=== PATIENT | female | born 1930 | race Hispanic/Latino ===

== ENCOUNTER 2016-08-22 09:58 | Emergency (ER) | payer MEDICARE ==
[2016-08-22 10:06] VITALS: BMI 20.3
[2016-08-22 10:41] LABS: ADD MANUAL DIFF? NO
[2016-08-22 10:47] LABS: BASO # 0.05 K/mm3 (0.0-2.0); BASO % 0.6 % (0.0-3.0); EOS # 0.5 (0.0-0.7); EOS % 6.4 % (1.5-5.0); GRAN # 3.88 (1.4-6.5); GRAN % 46.7 % (50.0-68.0); HEMATOCRIT 34.8 % (36.0-48.0); LYMPH # 3.2 (1.2-3.4); LYMPH % 38.5 % (22.0-35.0); MEAN CELL VOLUME 97.5 fL (80.0-105.0); MEAN CORPUSCULAR HEMOGLOBIN 32.2 pg (25.0-35.0); MONO # 0.7 (0.1-0.6); MONO % 7.8 % (1.0-6.0); PLATELET COUNT 276 10^3/uL (120.0-450.0); RED CELL DISTRIBUTION WIDTH 13.9 % (11.5-14.5); WHITE BLOOD COUNT 8.3 10^3/ul (4.5-11.0)
[2016-08-22 10:55] LABS: ALB/GLOB RATIO 0.9 (1.1-1.8); ALKALINE PHOSPHATASE 87 U/L (38-133); ALT/SGPT 8 U/L (7-56); AST/SGOT 19 U/L (15-39); BLOOD UREA NITROGEN 15 mg/dL (7-21); CALCIUM 8.8 mg/dL (8.4-10.5); CARBON DIOXIDE 28 mmol/L (21-33); CHLORIDE 104 mmol/L (98-107); GFR AFRICAN-AMERICAN 47; GLUCOSE,RANDOM 108 mg/dL (70-110); POTASSIUM 3.9 mmol/L (3.6-5.0); SODIUM 142 mmol/L (132-148); TOTAL PROTEIN 7.3 g/dL (5.8-8.3)
--- NOTE | 2016-08-22 10:57 | ED PDOC ---
Arrival/HPI - General Chief Complaint: Altered Mental Status Time Seen by Provider: 08/22/16 10:26 Historian: Patient - History of Present Illness Narrative History of Present Illness (Text): 08/22/16 10:27 A 86 year old female was brought into the emergency department by EMS for a syncopal episode prior to arrival. Patient reports she remembers feeling lightheaded and sitting down on a chair. Son states he found the patient unresponsive and called EMS. Patients last syncopal episode was 3 weeks ago. 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 Patient denies any headache, dizziness, fever, nausea, vomiting, diarrhea, abdominal pain, chest pain, shortness of breath or any other complaints. PMD: Dr. Koo Time/Duration: Prior to Arrival Symptom Course: Resolved Quality: Other Context: Home Past Medical History - Provider Review Nursing Documentation Reviewed: Yes - Cardiac Hx Cardiac Disorders: No - Pulmonary Hx Respiratory Disorders: No - Neurological Hx Neurological Disorder: No - HEENT Hx HEENT Disorder: No - Renal Other/Comment: reports bladder surgery in the 70s - Endocrine/Metabolic Hx Endocrine Disorders: No - Hematological/Oncological Hx Blood Disorders: No - Integumentary Hx Dermatological Disorder: No - Musculoskeletal/Rheumatological Hx Musculoskeletal Disorders: Yes Hx Falls: Yes - Gastrointestinal Hx Gastrointestinal Disorders: No - Genitourinary/Gynecological Other/Comment: reports bladder surgery in the s - Psychiatric Hx Depression: No Hx Emotional Abuse: No Hx Physical Abuse: No Hx Substance Use: No - Surgical History Hx Cholecystectomy: Yes - Suicidal Assessment Feels Threatened In Home Enviroment: No Family/Social History - Physician Review Nursing Documentation Reviewed: Yes Family/Social History: No Known Family HX Smoking Status: Never Smoked Hx Alcohol Use: No Hx Substance Use: No Hx Substance Use Treatment: No Allergies/Home Meds Allergies/Adverse Reactions: Allergies Penicillins Allergy (Verified 08/22/16 10:06) SWELLING Home Medications: Home Meds Medication Instructions Recorded Confirmed Omeprazole 0 mg PO DAILY 08/22/16 08/22/16 Physical Exam - Physical Exam Narrative Physical Exam (Text): - Review of Systems Constitutional: Normal. absent: Fatigue, Weight Change, Fevers Eyes: Normal ENT: Normal Respiratory: Normal absent: SOB, Cough, Sputum Cardiovascular: (+) Syncope absent: Chest pain, Palpitations Gastrointestinal: Normal absent: Abdominal pain, Diarrhea, Nausea, Vomiting Genitourinary: Normal. absent: Dysuria, Frequency, Hematuria Musculoskeletal: Normal. absent: Arthralgias, Back Pain, Neck Pain Skin: Normal Neurological: Normal absent: Focal Weakness Endocrine: Normal Hemo/Lymphatic: Normal Psychiatric: Normal - Physical exam Patient appears age appropriate, speaking full sentences without difficulty Head atraumatic. No nasal bone deformity or tenderness, no facial or jaw pain/ swelling. No neck midline tenderness, thoracic and lumbar spine with no midline tenderness. Pt moving b/l upper and lower extremities without difficulty, 5/5 strength, with full active and passive ROM. Distal neurovasc fully intact. Abd soft/nt/ng, no hematomas, no peritoneal signs. Neg. pelvic rock. - Systems Exam Head: Present: Atraumatic, Normocephalic Pupils: Present: PERRL Extraocular Muscles: Present: EOMI Conjunctiva: Present: Normal Mouth: Present: Moist Mucous Membranes Neck: Present: Normal Range of Motion. No: MIDLINE TENDERNESS, Paraspinal Tenderness Respiratory/Chest: Present: Clear to Auscultation, Good Air Exchange. No: Respiratory Distress, Accessory Muscle Use, Tachypneic Cardiovascular: Present: Regular Rate and Rhythm, Normal S1, S2, Peripheral Pulses Present. No: Murmurs Abdomen: Present: Normal Bowel Sounds, No: Tenderness, Peritoneal Signs, Rebound, Guarding, Distention Back: Present: Normal Inspection. No: Midline Tenderness, Paraspinal Tenderness Upper Extremity: Present: Normal Inspection. No: Cyanosis, Edema Lower Extremity: Present: Normal Inspection. No: Edema Neurological: Present: GCS=15, Speech Normal, cranial nerves II through XII fully intact with no cerebellar abnormality, neuro-sensory fully intact. No focal neurological deficits. Skin: Present: Warm, Dry, Normal Color. No: Rashes Lymphatic: Present: OX3, NI, NC Psychiatric: Present: Alert, Oriented x 3, Normal Insight, Normal Concentration Vital Signs Temp Pulse Resp BP Pulse Ox 08/22/16 10:00 98.8 F 76 16 174/108 H 96 Appearance: Positive for: Well-Appearing, Non-Toxic, Comfortable Pain Distress: None Mental Status: Positive for: Alert and Oriented X 3 Medical Decision Making ED Course and Treatment: 08/22/16 10:27 Impression: A 86 year old female with a syncopal episode. Patient denies any complaints. Physical exam unremarkable. Patient states that she has a history of orthostatic hypotension, states that this syncopal episode feels identical to her previous episodes which she has had in the past. No focal neurological deficits on examination, no signs of trauma. Patient ambulates in the emergency department with assistance. Patient states that she ambulates with a walker at home. Plan: -- Head CT -- Chest xray -- EKG -- Labs -- Urinalysis -- Reassess and disposition Progress Notes: EKG shows NSR at [address]-segment elevations, normal intervals. Interpreted by me. Report Date : 08/22/2016 11:58:02 PROCEDURE: CT HEAD WITHOUT CONTRAST. Dictator : Tian Jennings IMPRESSION: No evidence of acute intracranial hemorrhage intracranial collection mass effect or midline shift. Report Date : 08/22/2016 12:04:59 Procedure: Chest xray Dictator : Louis Knight MD IMPRESSION: No active disease. EKG interpreted by ER physician. Normal sinus. No ST-segment elevations. Normal intervals. 08/22/16 13:13 The patient refuses admission and wishes to leave the Emergency Department against my medical advice. Patient was told that admission to the hospital is necessary and a full explanation of the reasons why was given, and understood by patient. The risks of leaving were explained and include worsening of condition, and permanent disability and from an undiagnosed or untreated condition. The patient accepts these risks, and is in my judgment is competent and capable of understanding the clinical situation and my explanation of the risks of leaving. Patient was given the opportunity to ask questions and change mind. The patient was instructed regarding the best care for the present symptoms, and to follow up with Dr. Koo as soon as possible, or return to the Emergency Department at any time for continuing care. Pt states she understands to return to the ER right away for new or worsening symptoms or for inability to f/u with PMD or specialist as instructed. Patient states that she fully agrees with and understands discharge instructions. States that she agrees with the plan and disposition. Verbalized and repeated discharge instructions and plan. I have given the patient opportunity to ask any additional questions. - Lab Interpretations Lab Results: 08/22/16 10:30 08/22/16 10:30 Lab Results 08/22/16 10:30: WBC 8.3 D, RBC 3.57, Hgb 11.5 L, Hct 34.8 L, MCV 97.5, MCH 32.2 , MCHC 33.0, RDW 13.9, Plt Count 276, MPV 9.0, Gran % 46.7 L, Lymph % (Auto) 38.5 H, [place] % (Auto) 7.8 H, Eos % (Auto) 6.4 H, Baso % (Auto) 0.6, Gran # 3.88 , Lymph # 3.2, [place] # 0.7 H, Eos # 0.5, Baso # 0.05, PT 10.9, INR 1.01, APTT 24.6, Sodium 142, Potassium 3.9, Chloride 104, Carbon Dioxide 28, Anion Gap 14, BUN 15, Creatinine 1.3, Est GFR ( Amer) 47, Est GFR (Non-Af Amer) 39, Random Glucose 108, Calcium 8.8, Total Bilirubin 1.0, AST 19, ALT 8, Alkaline Phosphatase 87, Lactate Dehydrogenase 344, Total Creatine Kinase < 20 L, Troponin I < 0.01 D, Total Protein 7.3, Albumin 3.4, Globulin 3.9, Albumin/ Globulin Ratio 0.9 L I have reviewed the lab results: Yes - RAD Interpretation Radiology Orders: 08/22/16 10:26 HEAD W/O CONTRAST [CT] Stat CHEST PORTABLE [RAD] Stat - Scribe Statement The provider has reviewed the documentation as recorded by the Scribe Vicky Sheldon Provider Scribe Attestation: All medical record entries made by the Scribe were at my direction and personally dictated by me. I have reviewed the chart and agree that the record accurately reflects my personal performance of the history, physical exam, medical decision making, and the department course for this patient. I have also personally directed, reviewed, and agree with the discharge instructions and disposition. Disposition/Present on Arrival - Present on Arrival Any Indicators Present on Arrival: No History of DVT/PE: No History of Uncontrolled Diabetes: No Urinary Catheter: No History of Decub. Ulcer: No History Surgical Site Infection Following: None - Disposition Have Diagnosis and Disposition been Completed?: Yes Diagnosis: Syncope Disposition: AGAINST MEDICAL ADVICE Disposition Time: 13:15 Patient Plan: Discharge Patient Problems: Current Active Problems Problem Status Diagnosed Post concussion syndrome Acute Syncope Acute Condition: GUARDED Discharge Instructions (ExitCare): Syncope (ED), Against Medical Advice (ED) Additional Instructions: PLEASE RETURN TO THE EMERGENCY DEPARTMENT FOR NEW OR WORSENING SYMPTOMS. RETURN RIGHT AWAY IF YOU CANNOT FOLLOW UP WITH YOUR PRIMARY CARE DOCTOR, CLINIC, OR SPECIALIST IN 1-2 DAYS. Referrals: Mynor Koo MD [Primary Care Provider] - Follow up with primary
[2016-08-22 10:59] LABS: INR 1.01 (0.93-1.08); PARTIAL THROMBOPLASTIN TIME 24.6 Seconds (23.7-30.8)
[2016-08-22 11:02] VITALS: TEMP 98.8
[2016-08-22 11:07] LABS: TROPONIN I < 0.01 ng/mL
--- NOTE | 2016-08-22 11:59 | CT ---
PROCEDURE: CT HEAD WITHOUT CONTRAST. HISTORY: SHORT x2 weeks COMPARISON: Comparison is made to the previous study dated 07/23/2016 TECHNIQUE: Axial computed tomography images were obtained through the head/brain without intravenous contrast. Radiation dose: Total exam DLP = 688.12 mGy-cm. FINDINGS: HEMORRHAGE: No intracranial hemorrhage. BRAIN: No mass effect or edema. Re- demonstration of mild atrophy and moderate chronic microvascular white matter ischemic disease. VENTRICLES: Unremarkable. No hydrocephalus. CALVARIUM: Unremarkable. PARANASAL SINUSES: Unremarkable as visualized. No significant inflammatory changes. MASTOID AIR CELLS: Unremarkable as visualized. No inflammatory changes. OTHER FINDINGS: None. IMPRESSION: No evidence of acute intracranial hemorrhage intracranial collection mass effect or midline shift.
--- NOTE | 2016-08-22 12:06 | RAD ---
HISTORY: cough COMPARISON: 07/24/2016 FINDINGS: LUNGS: No active pulmonary disease. PLEURA: No significant pleural effusion identified, no pneumothorax apparent. CARDIOVASCULAR: Normal. OSSEOUS STRUCTURES: Several bilateral old rib fractures. No evidence of acute fracture. VISUALIZED UPPER ABDOMEN: Normal. OTHER FINDINGS: None. IMPRESSION: No active disease.
--- NOTE | 2016-08-22 12:51 | CARD ---
APPROVED REPORT EKG Measurement Heart [id number] <Conclusion> Normal sinus rhythm Left axis deviation Possible Anterior infarct, age undetermined T wave abnormality, consider lateral ischemia Prolonged QT Abnormal ECG
[2016-08-22 15:21] VITALS: BP 162/92; PULSE 75; RESP 17; O2SAT 97
== END 2016-08-22 15:00 | disposition left against medical advice (07) ==
LOC: ED 09:58
DX: R55 Syncope and collapse (principal)

== ENCOUNTER 2016-12-23 10:08 | Emergency (ER) | payer MEDICARE, OTHER ==
[2016-12-23 10:08] VITALS: BMI 20.3
[2016-12-23 10:31] VITALS: TEMP 97.4; O2SAT 98
[2016-12-23 10:38] LABS: BASO # 0.07 K/mm3 (0.0-2.0); BASO % 0.9 % (0.0-3.0); EOS # 0.3 (0.0-0.7); GRAN # 4.23 (1.4-6.5); GRAN % 54.2 % (50.0-68.0); HEMOGLOBIN 12.3 gm/dL (12.0-16.0); LYMPH # 2.6 (1.2-3.4); MEAN CELL VOLUME 95.9 fL (80.0-105.0); MEAN CORPUSCULAR HEMOGLOBIN 31.7 pg (25.0-35.0); MEAN CORPUSCULAR HGB CONC 33.1 g/dl (31.0-37.0); MEAN PLATELET VOLUME 8.6 fl (7.0-11.0); MONO # 0.6 (0.1-0.6); MONO % 7.9 % (1.0-6.0); PLATELET COUNT 342 10^3/uL (120.0-450.0); RBC 3.88 10^6/uL (3.5-6.1); RED CELL DISTRIBUTION WIDTH 14.2 % (11.5-14.5); WHITE BLOOD COUNT 7.8 10^3/ul (4.5-11.0)
[2016-12-23 10:50] LABS: ALBUMIN 3.8 g/dL (3.0-4.8); ALT/SGPT 14 U/L (7-56); AST/SGOT 20 U/L (15-39); BLOOD UREA NITROGEN 15 mg/dL (7-21); CALCIUM 9.2 mg/dL (8.4-10.5); GFR AFRICAN-AMERICAN 40; GFR NON-AFRICAN AMERICAN 33; MAGNESIUM 2.2 mg/dL (1.7-2.2)
--- NOTE | 2016-12-23 10:59 | ED PDOC ---
Arrival/HPI - General Chief Complaint: Syncope Time Seen by Provider: 12/23/16 10:23 Historian: Patient - History of Present Illness Narrative History of Present Illness (Text): 12/23/16 10:51 Simran Sepulveda is a 86 year old female who presents to the emergency department via EMS for evaluation following a syncopal episode prior to arrival. According to patient, she was making coffee when she passed out. Patient was found by son unresponsive, and leaning back on her walking chair which she uses to ambulate. Denies any fall/trauma. Patient states that she felt lightheaded earlier today morning, and notes that it was similar to her pervious syncopal episodes in the past. Currently patient is awake, alert and oriented X3 and does not endorse any complaints. Denies any fever, chills, headache, dizziness, chest pain, shortness of breath, nausea, vomiting, back pain, neck pain, or any other complaints at this time. Time/Duration: Prior to Arrival Symptom Onset: Sudden Symptom Course: Improving Activities at Onset: Light Context: Home Past Medical History - Provider Review Nursing Documentation Reviewed: Yes - Cardiac Hx Cardiac Disorders: Yes Hx Hypertension: Yes - Pulmonary Hx Respiratory Disorders: No - Neurological Hx Neurological Disorder: No - HEENT Hx HEENT Disorder: No - Renal Hx Renal Disorder: Yes Other/Comment: reports bladder surgery in the 70's - Endocrine/Metabolic Hx Endocrine Disorders: No - Hematological/Oncological Hx Blood Disorders: No - Integumentary Hx Dermatological Disorder: No - Musculoskeletal/Rheumatological Hx Musculoskeletal Disorders: Yes Hx Falls: Yes - Gastrointestinal Hx Gastrointestinal Disorders: No - Genitourinary/Gynecological Hx Genitourinary Disorders: Yes Other/Comment: reports bladder surgery in the 70s - Psychiatric Hx Psychophysiologic Disorder: No Hx Depression: No Hx Emotional Abuse: No Hx Physical Abuse: No Hx Substance Use: No - Surgical History Hx Cholecystectomy: Yes Other/Comment: "bladder surgery" - Suicidal Assessment Feels Threatened In Home Enviroment: No Family/Social History - Physician Review Nursing Documentation Reviewed: Yes Family/Social History: No Known Family HX Smoking Status: Never Smoked Hx Alcohol Use: No Hx Substance Use: No Hx Substance Use Treatment: No Allergies/Home Meds Allergies/Adverse Reactions: Allergies Penicillins Allergy (Verified 12/23/16 13:14) SWELLING Review of Systems - Physician Review All systems were reviewed & negative as marked: Yes - Review of Systems Constitutional: Normal. absent: Fatigue, Fevers Respiratory: Normal. absent: SOB, Cough, Sputum Cardiovascular: Syncope. absent: Chest Pain, Palpitations Neurological: Dizziness. absent: Headache Psychiatric: Normal Physical Exam Vital Signs Reviewed: Yes Vital Signs Temp Pulse Resp BP Pulse Ox 12/23/16 12:58 68 16 159/78 H 98 12/23/16 11:55 70 16 190/82 H 98 12/23/16 10:24 97.4 F L 65 18 156/78 H 98 Temperature: Afebrile Blood Pressure: Hypertensive Pulse: Regular Respiratory Rate: Normal Appearance: Positive for: Non-Toxic, Other (emaciated ) Pain Distress: None Mental Status: Positive for: Alert and Oriented X 3 Finger Stick Blood Glucose: 133 - Systems Exam Head: Present: Atraumatic, Normocephalic Pupils: Present: PERRL Extroacular Muscles: Present: EOMI Conjunctiva: Present: Normal Mouth: Present: Moist Mucous Membranes Neck: Present: Normal Range of Motion Respiratory/Chest: Present: Clear to Auscultation, Good Air Exchange. No: Respiratory Distress, Accessory Muscle Use Cardiovascular: Present: Regular Rate and Rhythm, Murmurs (systolic murmor ), Normal S1, S2 Abdomen: Present: Normal Bowel Sounds. No: Tenderness, Distention, Peritoneal Signs, Rebound, Guarding Upper Extremity: Present: Normal Inspection. No: Cyanosis, Edema Lower Extremity: Present: Normal Inspection. No: Edema Neurological: Present: GCS=15, CN II-XII Intact, Speech Normal, Motor Func Grossly Intact, Normal Sensory Function Skin: Present: Warm, Dry, Normal Color. No: Rashes Psychiatric: Present: Alert, Oriented x 3, Normal Insight, Normal Concentration Medical Decision Making ED Course and Treatment: Impression:A 86 year old female who presents to the emergency department for evaluation following a syncopal episode. Plan -- CT Head -- EKG -- Labs, cardiac enzymes -- Chest X-ray -- Urine Culture -- Urinalysis -- Reassess and disposition Progress Notes: 12/23/16 11:02 EKG interpreted by me: NSR @ 62 bpm with LAD 12/23/16 11:59 CT HEAD results reviewed: FINDINGS: HEMORRHAGE: No intracranial hemorrhage. BRAIN: No mass effect or edema. Chronic microvascular changes are seen in the periventricular white matter. VENTRICLES: Unremarkable. No hydrocephalus. CALVARIUM: Unremarkable. PARANASAL SINUSES: Unremarkable as visualized. No significant inflammatory changes. MASTOID AIR CELLS: Unremarkable as visualized. No inflammatory changes. OTHER FINDINGS: None. IMPRESSION: No acute findings 12/23/16 13:01 Patient was offered admission to the hospital for further evaluation, but patient wants to sign out against medical advice. I strong advised the patient of the risks including deterioration of condition, more episodes of syncope, and . Patient states she understand the risks of leaving the hospital. Leaving Against Medical Advice (AMA): The patient is choosing to leave against medical advice. I have personally explained to the patient that choosing to do so may result in permanent bodily harm or . I have discussed at great length that without further evaluation and monitoring there may be unforeseen circumstances and/or deterioration causing permanent bodily harm or as a result of their choice. The patient is alert, oriented, and shows the mental capacity to make clear decisions regarding the patients health care at this time. The patient continues to wish to leave against medical advice. The patient has been advised that they should return to the emergency room immediately if they change their mind at any time, or if their condition begins to change or worsen in any way.. - Lab Interpretations Lab Results: 12/23/16 10:20 12/23/16 10:20 Lab Results 12/23/16 12:15: Urine Color Dark yellow, Urine Appearance Turbid, Urine pH 7.0, Ur Specific [place] 1.010, Urine Protein Trace H, Urine Glucose (UA) Negative, Urine Ketones Negative, Urine Blood Moderate H, Urine Nitrate Negative, Urine Bilirubin Negative, Urine Urobilinogen 0.2, Ur Leukocyte Esterase Large H, Urine RBC 1 - 3, Urine WBC 10 - 15, Urine Bacteria Many 12/23/16 10:30: TSH 3rd Generation 6.63 H 12/23/16 10:20: Sodium 142, Potassium 4.1, Chloride 104, Carbon Dioxide 26, Anion Gap 16, BUN 15, Creatinine 1.5 H, Est GFR ( Amer) 40, Est GFR (Non- Af Amer) 33, Random Glucose 120 H, Calcium 9.2, Magnesium 2.2, Total Bilirubin 0.8, AST 20, ALT 14, Alkaline Phosphatase 88, Lactate Dehydrogenase 377, Total Creatine Kinase 30 L, Troponin I < 0.01, Total Protein 7.7, Albumin 3.8, Globulin 3.9, Albumin/Globulin Ratio 1.0 L 12/23/16 10:20: WBC 7.8, RBC 3.88, Hgb 12.3, Hct 37.2, MCV 95.9, MCH 31.7, MCHC 33.1, RDW 14.2, Plt Count 342, MPV 8.6, Gran % 54.2, Lymph % (Auto) 33.0, [place] % (Auto) 7.9 H, Eos % (Auto) 4.0, Baso % (Auto) 0.9, Gran # 4.23, Lymph # 2.6, [place] # 0.6, Eos # 0.3, Baso # 0.07 I have reviewed the lab results: Yes - RAD Interpretation Radiology Orders: 12/23/16 10:26 CHEST PORTABLE [RAD] Stat 12/23/16 10:27 HEAD W/O CONTRAST [CT] Stat Assistant Director Of [employer]: Radiologist - EKG Interpretation Interpreted by ED Physician: Yes Type: 12 lead EKG - Medication Orders Current Medication Orders: Discontinued Medications Amlodipine Besylate (Norvasc) 10 mg PO DAILY LIEN Atorvastatin Calcium (Lipitor) 20 mg PO DIN LIEN Clonidine HCl (Catapres) 0.1 mg PO TID PRN PRN Reason: Systolic Blood Pressure - Scribe Statement The provider has reviewed the documentation as recorded by the Lyibe Sandra Andujar Provider Attestation: Provider Scribe Attestation: All medical record entries made by the Scribe were at my direction and personally dictated by me. I have reviewed the chart and agree that the record accurately reflects my personal performance of the history, physical exam, medical decision making, and the department course for this patient. I have also personally directed, reviewed, and agree with the discharge instructions and disposition. Disposition/Present on Arrival - Present on Arrival Any Indicators Present on Arrival: No History of DVT/PE: No History of Uncontrolled Diabetes: No Urinary Catheter: No History of Decub. Ulcer: No History Surgical Site Infection Following: None - Disposition Have Diagnosis and Disposition been Completed?: Yes Diagnosis: Syncope Disposition: AGAINST MEDICAL ADVICE Disposition Time: 11:35 Condition: GUARDED Discharge Instructions (ExitCare): Syncope (ED) Additional Instructions: Thank you for letting us take care of you today. Your provider was Dr. Puente. You were treated for syncope. The emergency medical care you received today was directed at your acute symptoms. If you were prescribed any medication, please fill it and take as directed. It may take several days for your symptoms to resolve. Return to the Emergency Department if your symptoms worsen, do not improve, or if you have any other problems. Please contact your doctor or call one of the physicians/clinics you have been referred to that are listed on the Patient Visit Information form that is included in your discharge packet. Bring any paperwork you were given at discharge with you along with any medications you are taking to your follow up visit. Our treatment cannot replace ongoing medical care by a primary care provider (PCP) outside of the emergency department. Thank you for allowing the [facility] team to be part of your care today. FOLLOW UP WITH YOUR PRIMARY DOCTOR TODAY OR TOMORROW. RETURN TO THE EMERGENCY ROOM IF YOU HAVE ANY CONCERNS. Referrals: Mynor Koo MD [Primary Care Provider] - Follow up with primary
[2016-12-23 11:02] LABS: TROPONIN I < 0.01 ng/mL
--- NOTE | 2016-12-23 11:16 | CT ---
PROCEDURE: CT HEAD WITHOUT CONTRAST. HISTORY: syncope COMPARISON: None available. TECHNIQUE: Axial computed tomography images were obtained through the head/brain without intravenous contrast. Radiation dose: Total exam DLP = 791 mGy-cm. This CT exam was performed using one or more of the following dose reduction techniques: Automated exposure control, adjustment of the mA and/or kV according to patient size, and/or use of iterative reconstruction technique. FINDINGS: HEMORRHAGE: No intracranial hemorrhage. BRAIN: No mass effect or edema. Chronic microvascular changes are seen in the periventricular white matter. VENTRICLES: Unremarkable. No hydrocephalus. CALVARIUM: Unremarkable. PARANASAL SINUSES: Unremarkable as visualized. No significant inflammatory changes. MASTOID AIR CELLS: Unremarkable as visualized. No inflammatory changes. OTHER FINDINGS: None. IMPRESSION: No acute findings
--- NOTE | 2016-12-23 11:31 | RAD ---
HISTORY: syncope COMPARISON: 08/22/2016 FINDINGS: LUNGS: No acute findings PLEURA: No significant pleural effusion identified, no pneumothorax apparent. CARDIOVASCULAR: The heart is normal in size. There is moderate aortic tortuosity OSSEOUS STRUCTURES: No significant abnormalities. VISUALIZED UPPER ABDOMEN: Normal. OTHER FINDINGS: None. IMPRESSION: No acute findings
[2016-12-23 11:56] VITALS: RESP 16
[2016-12-23 12:37] LABS: URINE BILIRUBIN NEGATIVE (NEGATIVE); URINE BLOOD MODERATE (NEGATIVE); URINE GLUCOSE (UA) NEGATIVE (NEGATIVE); URINE LEUKOCYTE ESTERASE LARGE Leu/uL (NEGATIVE); URINE NITRATE NEGATIVE (NEGATIVE); URINE PROTEIN TRACE mg/dL (<30 mg/dL); URINE UROBILINOGEN 0.2 E.U./dL (<1 E.U./dL)
[2016-12-23 12:41] LABS: URINE APPEARANCE TURBID (CLEAR); URINE COLOR DARK YELLOW (YELLOW)
[2016-12-23 12:59] LABS: URINE BACTERIA MANY (NEG)
[2016-12-23 13:39] VITALS: BP 159/78; PULSE 68
--- NOTE | 2016-12-23 15:53 | CARD ---
APPROVED REPORT EKG Measurement Heart [id number] <Conclusion> Sinus rhythm with fusion complexes Left axis deviation Abnormal ECG
== END 2016-12-23 12:58 | disposition left against medical advice (07) ==
LOC: ED 10:08 → ERH 12:12 → UNDOADMIN 12:12
DX: R55 Syncope and collapse (principal); I10 Essential (primary) hypertension

== ENCOUNTER 2017-03-28 11:15 | Emergency (ER) | payer MEDICARE ==
[2017-03-28 11:24] VITALS: BMI 17.2
--- NOTE | 2017-03-28 12:00 | ED PDOC ---
Arrival/HPI - General Chief Complaint: Altered Mental Status Time Seen by Provider: 03/28/17 11:20 Historian: Patient - History of Present Illness Narrative History of Present Illness (Text): 03/28/17 11:52 A 86 year old female brought into the emergency department by EMS after syncopal episode this morning. Son reports he found patient passed out on her walker chair. He attempted to wake her up but patient would not respond. He says it took about 15-20 minutes to arouse, which occurred when police and ambulance arrived. Patient recalls standing up to get coffee but unable to provide any further details. Son reports patient has experienced similar episodes before. Patient denies any focal weakness, fever, chills, nausea, vomiting, abdominal pain, chest pain, shortness of breath, cough, headache, dizziness, weakness, vision changes or any other complaints. PMD: Dr. Koo Time/Duration: Prior to Arrival Symptom Course: Resolved Quality: Other Context: Home Past Medical History - Provider Review Nursing Documentation Reviewed: Yes - Infectious Disease Hx of Infectious Diseases: None - Cardiac Hx Cardiac Disorders: Yes Hx Hypertension: Yes - Pulmonary Hx Respiratory Disorders: No - Neurological Hx Neurological Disorder: No - HEENT Hx HEENT Disorder: No - Renal Hx Renal Disorder: Yes Other/Comment: reports bladder surgery in the 70's - Endocrine/Metabolic Hx Endocrine Disorders: No - Hematological/Oncological Hx Blood Disorders: No - Integumentary Hx Dermatological Disorder: No - Musculoskeletal/Rheumatological Hx Musculoskeletal Disorders: Yes Hx Falls: Yes - Gastrointestinal Hx Gastrointestinal Disorders: No - Genitourinary/Gynecological Hx Genitourinary Disorders: Yes Other/Comment: reports bladder surgery in the 70s - Psychiatric Hx Psychophysiologic Disorder: No Hx Depression: No Hx Emotional Abuse: No Hx Physical Abuse: No Hx Substance Use: No - Surgical History Hx Cholecystectomy: Yes Other/Comment: "bladder surgery" - Anesthesia Hx Anesthesia: Yes Hx Anesthesia Reactions: No - Suicidal Assessment Feels Threatened In Home Enviroment: No Family/Social History - Physician Review Nursing Documentation Reviewed: Yes Family/Social History: No Known Family HX Smoking Status: Never Smoked Hx Alcohol Use: No Hx Substance Use: No Hx Substance Use Treatment: No Allergies/Home Meds Allergies/Adverse Reactions: Allergies Penicillins Allergy (Intermediate, Verified 03/28/17 11:24) SWELLING Home Medications: Home Meds Medication Instructions Recorded Confirmed Naproxen Sod/Diphenhydramine 1 tab PO HS 03/28/17 03/28/17 [Aleve Pm Caplet] Review of Systems - Physician Review All systems were reviewed & negative as marked: Yes - Review of Systems Constitutional: absent: Fevers, Night Sweats Eyes: absent: Vision Changes Respiratory: absent: SOB, Cough Cardiovascular: Syncope. absent: Chest Pain Gastrointestinal: absent: Abdominal Pain, Nausea, Vomiting Neurological: absent: Headache, Dizziness, Focal Weakness Physical Exam Vital Signs Reviewed: Yes Vital Signs Temp Pulse Resp BP Pulse Ox 03/28/17 18:00 98.2 F 73 20 156/76 H 98 03/28/17 16:48 64 19 159/67 H 94 L 03/28/17 15:18 63 15 183/75 H 95 03/28/17 15:00 63 17 224/107 H 98 03/28/17 13:02 98.1 F 03/28/17 11:30 66 13 161/82 H 96 Temperature: Other (unable to record oral temp; patient refused rectal temp) Blood Pressure: Hypertensive Pulse: Regular Respiratory Rate: Normal Appearance: Positive for: Well-Appearing, Non-Toxic, Comfortable Pain Distress: None Mental Status: Positive for: Alert and Oriented X 3 Finger Stick Blood Glucose: 117 - Systems Exam Head: Present: Atraumatic, Normocephalic Pupils: Present: PERRL Extroacular Muscles: Present: EOMI Conjunctiva: Present: Normal Mouth: Present: Moist Mucous Membranes Pharnyx: Present: Normal. No: ERYTHEMA, EXUDATE Neck: Present: Normal Range of Motion Respiratory/Chest: Present: Clear to Auscultation, Good Air Exchange. No: Respiratory Distress, Accessory Muscle Use Cardiovascular: Present: Regular Rate and Rhythm, Normal S1, S2. No: Murmurs Abdomen: Present: Normal Bowel Sounds. No: Tenderness, Distention, Peritoneal Signs Back: Present: Normal Inspection Upper Extremity: Present: Normal Inspection, Normal ROM, NORMAL PULSES. No: Cyanosis, Edema, Swelling Lower Extremity: Present: Normal Inspection, NORMAL PULSES, Normal ROM. No: Edema, CALF TENDERNESS, Tenderness Neurological: Present: GCS=15, CN II-XII Intact, Speech Normal, Motor Func Grossly Intact Skin: Present: Warm, Dry, Normal Color. No: Rashes Psychiatric: Present: Alert, Oriented x 3, Normal Insight, Normal Concentration Medical Decision Making ED Course and Treatment: 03/28/17 11:52 Impression: A 86 year old female brought in after syncopal episode. Patient currently denies any complaints. Plan: -- Head CT -- Chest xray -- EKG -- Labs -- Urinalysis -- Reassess and disposition Progress Notes: EKG shows NSR at 63 BPM with normal intervals, LAD, no ST/T changes. Interpreted by me. Report Date : 03/28/2017 12:58:09 PROCEDURE: CT HEAD WITHOUT CONTRAST. Dictator : Jose Miranda MD IMPRESSION: 1. Questionable possible acute or subacute lacunar infarction left basal ganglia. Follow-up MRI or CT is recommended. No definite intracranial hemorrhage or mass-effect. 2. Age related neuro degenerative changes are reiterated. 3. Limited chronic left sphenoid sinus disease noted. Report Date : 03/28/2017 13:37:47 PROCEDURE: CHEST RADIOGRAPH, 1 VIEW Dictator : Jose Miranda MD IMPRESSION: No acute cardiopulmonary is appreciable. COPD and potential pulmonary arterial hypertension are suggested. 03/28/17 14:20 Patient with noted history of syncope. CT brain showing possible acute or subacute infarct. No focal weakness on exam. She needs further neuro evaluation and further workup in the hospital. UTI is also present on labs. These findings have been discussed with the patient, who is adamantly refusing admission and further workup in the hospital and insistent to go home. She understands the risk of leaving the hospital without workup, including risk of permanent disability, sepsis, , or other undiagnosed pathology. The patient is still insistent to leave against medical advice and has signed the ama sheet. 03/28/17 16:25 Shortly after signing ama and about to leave, here BP was found be very high at 224/107; given dose of labetalol. Spoke with the son and sister, who will be taking the patient home. 03/28/17 18:45 The patient's daughter came to take her mother home. She apparently spoke further with her mother, and even though the patient does not want to stay in the hospital, she is willing to go with her daughter who works at another facility and might be willing to go there. She did leave here against medical advice. - Lab Interpretations Lab Results: 03/28/17 12:05 03/28/17 12:05 Lab Results 03/28/17 13:30: Urine Color Yellow, Urine Appearance Sl cloudy, Urine pH 6.0, Ur Specific [place] 1.020, Urine Protein Trace H, Urine Glucose (UA) Negative, Urine Ketones Negative, Urine Blood Negative, Urine Nitrate Positive H, Urine Bilirubin Negative, Urine Urobilinogen 0.2, Ur Leukocyte Esterase Negative, Urine RBC 0 - 2, Urine WBC 2 - 5, Ur Epithelial Cells 1 - 3, Urine Bacteria Many 03/28/17 12:05: PT 11.0, INR 1.00, APTT 18.8 L 03/28/17 12:05: Sodium 143, Potassium 4.3, Chloride 108 H, Carbon Dioxide 25, Anion Gap 14, BUN 17, Creatinine 1.5 H, Est GFR ( Amer) 40, Est GFR (Non- Af Amer) 33, Random Glucose 112 H, Calcium 8.8, Magnesium 2.1, Total Bilirubin 0.7, AST 22, ALT 10, Alkaline Phosphatase 71, Lactate Dehydrogenase 439, Total Creatine Kinase 26 L, Troponin I < 0.01, Total Protein 7.2, Albumin 3.7, Globulin 3.5, Albumin/Globulin Ratio 1.1, Lipase 353 H 03/28/17 12:05: WBC 6.3, RBC 3.74, Hgb 12.0, Hct 36.6, MCV 97.9, MCH 32.1, MCHC 32.8, RDW 13.9, Plt Count 247, MPV 9.0, Gran % 60.8, Lymph % (Auto) 25.7, Wright % (Auto) 10.1 H, Eos % (Auto) 2.6, Baso % (Auto) 0.8, Gran # 3.81, Lymph # 1.6, Wright # 0.6, Eos # 0.2, Baso # 0.05 - RAD Interpretation Radiology Orders: 03/28/17 11:57 CHEST ONE VIEW [RAD] Stat 03/28/17 11:58 Brain [HEAD W/O CONTRAST] [CT] Stat - Medication Orders Current Medication Orders: Discontinued Medications Aspirin (Aspirin Chewable) 324 mg PO STAT STA Stop: 03/28/17 14:25 Last Admin: 03/28/17 14:33 Dose: 324 mg Sodium Chloride (Sodium Chloride 0.9%) 500 mls @ 100 mls/hr IV .Q5H STA Stop: 03/28/17 18:26 Last Admin: 03/28/17 14:04 Dose: 100 mls/hr eMAR Start Stop Document 03/28/17 14:04 CNR (Rec: 03/28/17 14:05 CNR [email or web address] Intravenous Solution Start Date 03/28/17 Start Time 14:04 Ceftriaxone Sodium (Rocephin 1 Gram Ivpb) 1 gm in 100 mls @ 200 mls/hr IV ONCE STA PRN Reason: Protocol Stop: 03/28/17 14:53 Last Admin: 03/28/17 14:34 Dose: 200 mls/hr eMAR Start Stop Document 03/28/17 14:34 CNR (Rec: 03/28/17 14:35 CNR [email or web address]) Intravenous Solution Start Date 03/28/17 Start Time 14:35 Labetalol HCl (Trandate) 20 mg IV STAT STA Stop: 03/28/17 15:06 Last Admin: 03/28/17 15:14 Dose: 20 mg eMAR Start Stop Document 03/28/17 15:14 CNR (Rec: 03/28/17 15:18 CNR [email or web address] Intravenous Solution Start Date 03/28/17 Start Time 15:18 - Scribe Statement The provider has reviewed the documentation as recorded by the Jaciel Sheldon Provider Scribe Attestation: All medical record entries made by the Scribe were at my direction and personally dictated by me. I have reviewed the chart and agree that the record accurately reflects my personal performance of the history, physical exam, medical decision making, and the department course for this patient. I have also personally directed, reviewed, and agree with the discharge instructions and disposition. Disposition/Present on Arrival - Present on Arrival Any Indicators Present on Arrival: No History of DVT/PE: No History of Uncontrolled Diabetes: No Urinary Catheter: No History of Decub. Ulcer: No History Surgical Site Infection Following: None - Disposition Have Diagnosis and Disposition been Completed?: Yes Diagnosis: Syncope, UTI (urinary tract infection), Lacunar infarction, Uncontrolled hypertension Disposition: AGAINST MEDICAL ADVICE Disposition Time: 14:20 Patient Plan: Other (AMA) Condition: STABLE Discharge Instructions (ExitCare): Syncope (ED) Additional Instructions: You are leaving the hospital against medical advice. You may return to the emergency room at any time. If you choose not to do so, then follow up with your primary care doctor as soon as possible. Make sure you take the prescribed antibiotics and recommend baby aspirin daily. Also recommend follow up with neurology. Prescriptions: Sulfamethoxazole/Trimethoprim [Bactrim DS 800 mg-160 mg] 1 tab PO BID #14 tab Referrals: Mynor Koo MD [Primary Care Provider] - Follow up with primary Iglesia Newell MD [Staff Provider] - Follow up with primary Forms: [facility] ([place]ori)
[2017-03-28 12:27] LABS: BASO # 0.05 K/mm3 (0.0-2.0); BASO % 0.8 % (0.0-3.0); EOS # 0.2 (0.0-0.7); EOS % 2.6 % (1.5-5.0); GRAN # 3.81 (1.4-6.5); GRAN % 60.8 % (50.0-68.0); HEMATOCRIT 36.6 % (36.0-48.0); LYMPH # 1.6 (1.2-3.4); LYMPH % 25.7 % (22.0-35.0); MEAN CELL VOLUME 97.9 fl (80.0-105.0); MEAN CORPUSCULAR HEMOGLOBIN 32.1 pg (25.0-35.0); MEAN CORPUSCULAR HGB CONC 32.8 g/dl (31.0-37.0); MONO # 0.6 (0.1-0.6); MONO % 10.1 % (1.0-6.0); RED CELL DISTRIBUTION WIDTH 13.9 % (11.5-14.5); WHITE BLOOD COUNT 6.3 10^3/ul (4.5-11.0)
[2017-03-28 12:35] LABS: ALB/GLOB RATIO 1.1 (1.1-1.8); ALKALINE PHOSPHATASE 71 U/L (38-126); ALT/SGPT 10 U/L (7-56); AST/SGOT 22 U/L (14-36); BILIRUBIN,TOTAL 0.7 mg/dL (0.2-1.3); BLOOD UREA NITROGEN 17 mg/dL (7-21); CALCIUM 8.8 mg/dL (8.4-10.5); CARBON DIOXIDE 25 mmol/L (21-33); CHLORIDE 108 mmol/L (98-107); GFR AFRICAN-AMERICAN 40; GLUCOSE,RANDOM 112 mg/dL (70-110); LIPASE 353 U/L (23-300); MAGNESIUM 2.1 mg/dL (1.7-2.2); POTASSIUM 4.3 mmol/L (3.6-5.0); SODIUM 143 mmol/L (132-148); TOTAL PROTEIN 7.2 g/dL (5.8-8.3)
[2017-03-28 12:47] LABS: PARTIAL THROMBOPLASTIN TIME 18.8 Seconds (25.1-36.5)
[2017-03-28 12:51] LABS: TROPONIN I < 0.01 ng/mL
--- NOTE | 2017-03-28 13:01 | CT ---
PROCEDURE: CT HEAD WITHOUT CONTRAST. HISTORY: syncope COMPARISON: Head CT without contrast 12/23/2016. TECHNIQUE: Axial computed tomography images were obtained through the head/brain without intravenous contrast. Radiation dose: Total exam DLP = 747.90 mGy-cm. This CT exam was performed using one or more of the following dose reduction techniques: Automated exposure control, adjustment of the mA and/or kV according to patient size, and/or use of iterative reconstruction technique. FINDINGS: HEMORRHAGE: No intracranial hemorrhage. BRAIN: Increased lucency is questioned at the medial left basal ganglia which may indicate an interval acute separate brain infarction. Otherwise, stable diffuse cerebral atrophy chronic microangiopathy are identified with no peripheral cortical edema appreciated. Posterior fossa contents are stable and unremarkable grossly. VENTRICLES: Unremarkable. No hydrocephalus. CALVARIUM: Unremarkable. PARANASAL SINUSES: Limited, chronic left sphenoid sinus disease identified. MASTOID AIR CELLS: Unremarkable as visualized. No inflammatory changes. OTHER FINDINGS: None. IMPRESSION: 1. Questionable possible acute or subacute lacunar infarction left basal ganglia. Follow-up MRI or CT is recommended. No definite intracranial hemorrhage or mass-effect. 2. Age related neuro degenerative changes are reiterated. 3. Limited chronic left sphenoid sinus disease noted.
[2017-03-28] MEDS ORDERED: Sodium Chloride 0.9% 500 ML IV STA (13:27)
--- NOTE | 2017-03-28 13:39 | RAD ---
PROCEDURE: CHEST RADIOGRAPH, 1 VIEW HISTORY: syncope COMPARISON: Portable chest 12/23/2016. FINDINGS: LUNGS: No acute infiltrate is identified bilaterally however COPD and pulmonary fibrotic changes appear stable overall. PLEURA: No pneumothorax or pleural fluid seen. CARDIOVASCULAR: Cardiac size remains stable. Attenuation of the peripheral pulmonary arterial pattern may indicate pulmonary arterial hypertension. Clinically correlate further. OSSEOUS STRUCTURES: Old healed right rib fractures again evident. VISUALIZED UPPER ABDOMEN: Normal. OTHER FINDINGS: None. IMPRESSION: No acute cardiopulmonary is appreciable. COPD and potential pulmonary arterial hypertension are suggested.
[2017-03-28 13:46] LABS: URINE BILIRUBIN NEGATIVE (NEGATIVE); URINE BLOOD NEGATIVE (NEGATIVE); URINE GLUCOSE (UA) NEGATIVE (NEGATIVE); URINE KETONE NEGATIVE (NEGATIVE); URINE LEUKOCYTE ESTERASE NEGATIVE Leu/uL (NEGATIVE); URINE PROTEIN TRACE mg/dL (<30 mg/dL); URINE UROBILINOGEN 0.2 E.U./dL (<1 E.U./dL)
[2017-03-28 13:47] LABS: URINE COLOR YELLOW (YELLOW)
[2017-03-28 14:06] LABS: URINE APPEARANCE SL CLOUDY (CLEAR); URINE BACTERIA MANY (NEG)
[2017-03-28 14:07] LABS: URINE RBC 0 - 2 /hpf (0-2)
[2017-03-28] MEDS ORDERED: cefTRIAXone 1 gm 1 GM/100 ML BAG IV STA (14:24)
[2017-03-28] MEDS ORDERED: Labetalol 5 mg/ml Inj 20ML IV STA (15:05)
[2017-03-28 18:02] VITALS: BP 156/76; PULSE 73; RESP 20; TEMP 98.2; O2SAT 98
--- NOTE | 2017-03-29 16:04 | CARD ---
APPROVED REPORT EKG Measurement Heart [id number] <Conclusion> Normal sinus rhythm Left axis deviation Septal infarct, age undetermined NSSTW changes Prolonged QTc
== END 2017-03-28 18:41 | disposition left against medical advice (07) ==
LOC: ED 11:15
DX: I63.9 Cerebral infarction, unspecified (principal); N39.0 Urinary tract infection, site not specified; R55 Syncope and collapse; I10 Essential (primary) hypertension; Z88.0 Allergy status to penicillin
CPT/HCPCS: 70450; 71010; 80053; 81001; 82550; 83615; 83690; 83735; 84484; 85025; 85610; 85730; 87086; 87181; 93005; 96374; 96375; 99285; J0696; J7040